=== PATIENT | male | born 1995 | race Caucasian/White ===

== ENCOUNTER 2017-08-11 09:49 | Day surgery (SDC) | payer OTHER ==
[~2017-08-11 09:49] MED LIST: Lactated Ringers 1,000 ML IV SCH; Lidocaine 1%/Sod Bicarbonate in NS 8.4% 1 ML Syringe IDERM PRN; Sodium Chloride 0.9% 10 ML Syringe FLUSH PRN; fentaNYL 100 MCG/2 ML SDV ONE
--- NOTE | 2017-08-11 10:24 | PCM.PREANE ---
Preanesthetic Assessment - Procedure Proposed Procedure: closed reduction with percutaneous pinning first metacarpal fx - Anesthesia/Transfusion/Family Hx Anesthesia History: Prior Anesthesia Without Reaction Family History of Anesthesia Reaction: No Transfusion History: No Prior Transfusion(s) - Review of Systems General: No Symptoms Pulmonary: No Symptoms Cardiovascular: No Symptoms Gastrointestinal: No Symptoms Neurological: No Symptoms Other: Reports: None - Physical Assessment NPO Status Date: 08/10/17 NPO Status Time: 23:25 Pulse: 67 O2 Sat by Pulse Oximetry: 100 Respiratory Rate: 16 Blood Pressure: 142/81 Temperature: 98.5 F Height: 5 ft 10 in Weight: 90 kg ASA Class: 1 Mental Status: Alert & Oriented x3 Airway Class: Mallampati = 1 Dentition: Reports: Normal Dentition Thyro-Mental Finger Breadths: 3 Mouth Opening Finger Breadths: 3 ROM/Head Extension: Full Lungs: Clear to Auscultation, Normal Respiratory Effort Cardiovascular: Regular Rate, Regular Rhythm - Allergies Allergies/Adverse Reactions: Allergies Allergy/AdvReac Type Severity Reaction Status Date / Time No Known Allergies Allergy Verified 08/08/17 10:17 - Blood Blood Available: No - Acknowledgements Anesthesia Type Planned: HOLLIS Pt an Appropriate Candidate for the Planned Anesthesia: Yes Alternatives and Risks of Anesthesia Discussed w Pt/Guardian: Yes Pt/Guardian Understands and Agrees with Anesthesia Plan: Yes PreAnesthesia Questionnaire - Past Health History Medical/Surgical History: Denies Medical/Surgical History Cardiovascular History: Reports: None Respiratory History: Reports: None Gastrointestinal History: Reports: None Musculoskeletal History: - Past Surgical History Musculoskeletal Surgical History: Reports: Other (See Below) Other Musculoskeletal Surgeries/Procedures:: right patella surgery - SUBSTANCE USE Smoking Status *Q: Never Smoker Tobacco Use Within Last Twelve Months: No Days Per Week of Alcohol Use: 1 (rare) Number of Drinks Per Day: 1 Total Drinks Per Week: 1 Recreational Drug Use History: No - HOME MEDS Home Medications: Home Meds Acetaminophen/HYDROcodone [Burnett 325-5 MG] 1 - 2 tab PO Q6H PRN #30 tablet 08/08 [Rx] - CURRENT (IN HOUSE) MEDS Current Meds: Current Medications Discontinued Medications Fentanyl (Sublimaze) Confirm Administered Dose 100 mcg .ROUTE .STK-MED ONE Stop: 08/11/17 07:53 Lactated Ringer's (Ringers, Lactated) 1,000 mls @ 125 mls/hr IV ASDIRECTED MARVIN Stop: 08/08/17 23:00 Lidocaine/Sodium Bicarbonate (Buffered Lidocaine 1% In Ns 8.4%) 0.25 ml IDERM ONETIME PRN PRN Reason: Prior to IV Start Stop: 08/08/17 18:00 Sodium Chloride (Saline Flush) 10 ml FLUSH ASDIRECTED PRN PRN Reason: Keep Vein Open Stop: 08/08/17 18:00
[2017-08-11] MEDS ORDERED: Sodium Bicarbonate 8.4% 50 MEQ/50 ML SDV ONE (10:46)
[2017-08-11] MEDS ORDERED: Lidocaine 0.5% 50 ML SDV ONE (10:46)
[2017-08-11] MEDS ORDERED: Bupivacaine 0.25% 30 ML SDV ONE (11:12)
[2017-08-11] MEDS ORDERED: Lidocaine 1%/Sod Bicarbonate in NS 8.4% 1 ML Syringe IDERM ONE (11:30)
[2017-08-11] MEDS ORDERED: Lactated Ringers 1,000 ML IV SCH (11:30)
[2017-08-11] MEDS ORDERED: Propofol 200 MG/20 ML SDV ONE (11:48)
[2017-08-11] MEDS ORDERED: fentaNYL 100 MCG/2 ML SDV ONE ×2 (11:50→12:04)
[2017-08-11] MEDS ORDERED: ceFAZolin 1 GM Vial ONE (12:32)
--- NOTE | 2017-08-11 12:41 | PCM48HPAN ---
Post Anesthesia Note - EVALUATION WITHIN 48HRS OF ANESTHETIC Vital Signs in Normal Range: Yes Patient Participated in Evaluation: Yes Respiratory Function Stable: Yes Airway Patent: Yes Cardiovascular Function Stable: Yes Hydration Status Stable: Yes Pain Control Satisfactory: Yes Nausea and Vomiting Control Satisfactory: Yes Mental Status Recovered: Yes Pulse Rate: 61 SaO2: 100 Resp Rate: 16 Temperature: 36.3 C Blood Pressure: 130/80
[2017-08-11] MEDS ORDERED: Acetaminophen/HYDROcodone 325-5 MG Tab PO SCH (12:51)
--- NOTE | 2017-08-11 13:01 | CR ---
Left thumb: Five views of the left thumb were obtained utilizing C-arm device. Comparison: No prior thumb study. Fracture is identified within the proximal aspect of the first metacarpal. Study shows placement of 2 fixation pins across the fracture line. Fluoroscopy time given as 30.7 seconds. Impression: 1. Operative study showing fixation of proximal first metacarpal fracture. Diagnostic code #2
--- NOTE | 2017-08-18 10:58 | PCM.OPNOTE ---
- General Post-Op/Procedure Note Date of Surgery/Procedure: 08/11/17 Operative Procedure(s): closed reduction percutaneous pinning of left first metacarpal Pre Op Diagnosis: displaced base of left first metacarpal fracture Post-Op Diagnosis: Same Anesthesia Technique: Regional Block (em) Primary Surgeon: Rajat Woodard Anesthesia Provider: Sarabjit Huerta Finish Repair Worker: Magda Tomlinson EBL in mLs: 5 Complications: None Condition: Good
--- NOTE | 2017-08-18 11:28 | OR ---
DATE OF OPERATION: 08/11/2017 SURGEON: Rajat Woodard MD OPERATION PERFORMED: Closed reduction and percutaneous pinning of left first metacarpal fracture. PREOPERATIVE DIAGNOSIS: Displaced base of left first metacarpal fracture. POSTOPERATIVE DIAGNOSIS: Displaced base of left first metacarpal fracture. ANESTHESIA: Regional Sunman block. ANESTHESIA PROVIDER: Sarabjit Huerta. COIN MACHINE SERVICER REPAIRER: Magda Tomlinson PA-C. ESTIMATED BLOOD LOSS: Less than 5 mL. COMPLICATIONS: None. CONDITION: Stable. DESCRIPTION OF PROCEDURE: The patient was identified in the preoperative holding area. Proper site was marked and identified by the surgeon. The patient was taken back to the operating theater where after adequate anesthesia, the patient's left upper extremity was sterilely prepped and draped in the usual sterile fashion. OR time-out was performed. The patient received antibiotics before the Sunman block. At this time, under C-arm fluoroscopy, a reduction maneuver was attempted and it was able to be reduced under closed reduction. At this time, two 0.042 K-wires were placed in retrograde fashion, starting at the foveal region of the first metacarpal and then were placed in cross-pin fashion in divergent technique across the base of the left first metacarpal fracture and it showed adequate reduction on AP, lateral, and oblique views and was stable throughout motion at this time. Once on C-arm fluoroscopy, final films were taken and it showed that the pins were in adequate position. The pins were then bent and cut. Sterile soft dressing was applied along with a radial thumb spica splint, and the patient was sent to PACU in stable condition. MMODAL /[id number]
== END 2017-08-11 13:34 | disposition home or self-care (01) ==
LOC: JD.SDS 09:49
PROVIDERS: ATTEND Orthopaedic Surgery
DX: S62.232A Other displaced fracture of base of first metacarpal bone, left hand, initial encounter for closed fracture (principal); Y93.61 Activity, american tackle football; Z98.890 Other specified postprocedural states
CPT/HCPCS: 26650; 76000; A9270; C1713; C1769; J0690; J3010; J3490; J7120; 01820; J2704

== ENCOUNTER 2025-02-01 20:24 | Emergency (ER) | payer SELFPAY ==
[2025-02-01 20:55] LABS: BASOPHILS ABSOLUTE AUTO 0.1 K/mm3 (0.0-0.2); BASOPHILS PERCENT AUTO 1.1 % (0.0-1.0); EOSINOPHILS ABSOLUTE AUTO 0.1 K/mm3 (0.0-0.4); EOSINOPHILS PERCENT AUTO 2.1 % (0.0-6.0); IMMATURE GRAN ABSOLUTE AUTO 0.01 K/mm3 (0.00-0.05); IMMATURE GRAN PERCENT AUTO 0.2 % (0.0-0.4); LYMPHOCYTES ABSOLUTE AUTO 2.0 K/mm3 (1.0-4.8); LYMPHOCYTES PERCENT AUTO 31.2 % (24.0-44.0); MEAN PLATELET VOLUME 8.9 fl (9.4-12.4); MONOCYTES ABSOLUTE AUTO 0.7 K/mm3 (0.0-0.8); MONOCYTES PERCENT AUTO 10.7 % (0.0-8.0); NEUTROPHILS ABSOLUTE AUTO 3.5 K/mm3 (1.8-7.7); NEUTROPHILS PERCENT AUTO 54.7 % (41.0-71.0); NRBC ABSOLUTE 0.00 (0.00-0.02); NRBC PERCENT 0.0 % (0.0-0.2); PLATELET COUNT,PLT 177 K/mm3 (150-400); RED BLOOD CELL COUNT 5.02 M/mm3 (4.52-5.90); WHITE BLOOD CELL COUNT,WBC 6.29 K/mm3 (3.9-11.3)
[2025-02-01 21:16] LABS: A/G RATIO 0.9 (1-2); ALANINE AMINOTRANSFERASE,ALT 79.0 U/L (16-63); ASPARTATE AMNIOTRANSFERASE,AST 195.0 U/L (15-37); BILIRUBIN TOTAL 2.6 mg/dL (0.2-1.0); BLOOD UREA NITROGEN,BUN 9.0 mg/dL (7-18); CARBON DIOXIDE,CO2 24.0 mEq/L (21-32); CHLORIDE,CL 100.0 mEq/L (98-107); CREATININE 1.0 mg/dL (0.7-1.3); EST CRCL DRUG DOSING (CG) 118.18 mL/min; ESTIMATED GFR 106.0 mL/min (>60); GLUCOSE RANDOM 92.0 mg/dL (70-99); POTASSIUM,K 4.0 mEq/L (3.5-5.1); PROTEIN TOTAL,TP 8.2 g/dl (6.4-8.2); SODIUM,NA 140.0 mEq/L (136-145)
== END 2025-02-01 21:35 | disposition home or self-care (01) ==
LOC: JD.ED 20:24
DX: G57.62 Lesion of plantar nerve, left lower limb (principal); G62.9 Polyneuropathy, unspecified; F10.20 Alcohol dependence, uncomplicated; F17.200 Nicotine dependence, unspecified, uncomplicated; Z86.16 Personal history of COVID-19
CPT/HCPCS: 36415; 80053; 83036; 85025; 99283; 99284

== ENCOUNTER 2025-02-18 07:10 | Emergency (ER) | payer SELFPAY | END 2025-02-18 08:26 | disposition home or self-care (01) | LOC: JD.ED 07:10 | DX: K08.89 Other specified disorders of teeth and supporting structures (principal); F22 Delusional disorders; Z79.899 Other long term (current) drug therapy; Z86.16 Personal history of COVID-19 | CPT/HCPCS: 99282 ==

== ENCOUNTER 2025-02-21 07:03 | Inpatient (IN) | payer MEDICAID ==
[2025-02-21] MEDS ORDERED: Sodium Chloride 0.9% 10 ML Syringe FLUSH PRN (07:43)
[2025-02-21] MEDS: LORazepam 2 MG/ML SDV IVPUSH ONE ×2 (07:56→10:02)
[2025-02-21 07:59] LABS: BASOPHILS ABSOLUTE AUTO 0.0 K/mm3 (0.0-0.2); BASOPHILS PERCENT AUTO 0.4 % (0.0-1.0); EOSINOPHILS ABSOLUTE AUTO 0.0 K/mm3 (0.0-0.4); EOSINOPHILS PERCENT AUTO 0.1 % (0.0-6.0); IMMATURE GRAN ABSOLUTE AUTO 0.01 K/mm3 (0.00-0.05); IMMATURE GRAN PERCENT AUTO 0.1 % (0.0-0.4); LYMPHOCYTES ABSOLUTE AUTO 1.2 K/mm3 (1.0-4.8); LYMPHOCYTES PERCENT AUTO 15.9 % (24.0-44.0); MEAN PLATELET VOLUME 10.3 fl (9.4-12.4); MONOCYTES ABSOLUTE AUTO 1.0 K/mm3 (0.0-0.8); MONOCYTES PERCENT AUTO 13.9 % (0.0-8.0); NEUTROPHILS ABSOLUTE AUTO 5.2 K/mm3 (1.8-7.7); NEUTROPHILS PERCENT AUTO 69.6 % (41.0-71.0); NRBC ABSOLUTE 0.07 (0.00-0.02); NRBC PERCENT 0.9 % (0.0-0.2); PLATELET COUNT,PLT 228 K/mm3 (150-400); RED BLOOD CELL COUNT 4.88 M/mm3 (4.52-5.90); WHITE BLOOD CELL COUNT,WBC 7.48 K/mm3 (3.9-11.3)
[2025-02-21] MEDS: Iopamidol 612 MG/ML 100 ML Bottle IVPUSH ONE (08:16)
[2025-02-21] MEDS: Sodium Chloride 0.9% 10 ML Syringe FLUSH PRN (08:16)
[2025-02-21 08:17] LABS: A/G RATIO 1.0 (1-2); ALANINE AMINOTRANSFERASE,ALT 54.0 U/L (16-63); ASPARTATE AMNIOTRANSFERASE,AST 158.0 U/L (15-37); BILIRUBIN TOTAL 4.3 mg/dL (0.2-1.0); BLOOD UREA NITROGEN,BUN 17.0 mg/dL (7-18); CARBON DIOXIDE,CO2 21.0 mEq/L (21-32); CREATINE KINASE,CK 93.0 U/L (39-308); EST CRCL DRUG DOSING (CG) 90.91 mL/min; ESTIMATED GFR 77.0 mL/min (>60); GLUCOSE RANDOM 126.0 mg/dL (70-99); POTASSIUM,K 2.7 mEq/L (3.5-5.1); SODIUM,NA 132.0 mEq/L (136-145); TSH 2.335 uIU/mL (0.358-3.74)
[2025-02-21 08:19] LABS: CHLORIDE,CL 86.0 mEq/L (98-107); CREATININE 1.3 mg/dL (0.7-1.3); ETHANOL BLOOD MEDICAL 0.0 gm% (0.00); PROTEIN TOTAL,TP 9.0 g/dl (6.4-8.2)
[2025-02-21] MEDS: Magnesium Sulf/Wat 4 GM/50 mL 4 GM in Premix Bag 1 BAG IV ONE (10:02)
[2025-02-21] MEDS: Potassium Chloride 20 MEQ Tab.ER PO ONE (13:36)
[2025-02-21 14:45] LABS: BUPRENORPHINE SCREEN,URINE NEGATIVE (CUTOFF=10); METHADONE SCREEN, URINE NEGATIVE (CUT0FF=200); METHAMPHETAMINES SCREEN, URINE NEGATIVE (CUTOFF=500); OXYCODONE SCREEN,URINE NEGATIVE (CUT0FF=100); THC SCREEN,URINE 20 NG/ML NEGATIVE (CUTOFF=50)
[2025-02-21 14:49] LABS: AMPHETAMINES SCREEN, URINE NEGATIVE (CUTOFF=500); APPEARANCE,URINE CLEAR (Clear); GLUCOSE,URINE NEGATIVE (Negative); OCCULT BLOOD,URINE NEGATIVE (Negative)
[2025-02-21] MEDS ORDERED: LORazepam 2 MG/ML SDV IV PRN ×2 (15:04)
[2025-02-21] MEDS: Thiamine 200 MG/2 ML MDV IVPUSH SCH (15:32)
[2025-02-21] MEDS: Folic Acid 50 MG/10 ML MDV IV SCH (15:33)
[2025-02-21] MEDS ORDERED: Ondansetron 4 MG/2 ML SDV IV PRN (15:53)
[2025-02-21] MEDS ORDERED: Ketorolac 30 MG/ML SDV IV PRN (15:53)
[2025-02-21 16:25] LABS: INR 1.12
[2025-02-21] MEDS: Lactated Ringers 1,000 ML IV SCH (16:39)
[2025-02-21] MEDS ORDERED: Ketorolac 30 MG/ML SDV IVPUSH PRN (17:47)
[2025-02-22 04:43] LABS: BASOPHILS ABSOLUTE AUTO 0.0 K/mm3 (0.0-0.2); BASOPHILS PERCENT AUTO 0.5 % (0.0-1.0); EOSINOPHILS ABSOLUTE AUTO 0.0 K/mm3 (0.0-0.4); EOSINOPHILS PERCENT AUTO 0.8 % (0.0-6.0); IMMATURE GRAN ABSOLUTE AUTO 0.01 K/mm3 (0.00-0.05); IMMATURE GRAN PERCENT AUTO 0.3 % (0.0-0.4); LYMPHOCYTES ABSOLUTE AUTO 1.5 K/mm3 (1.0-4.8); LYMPHOCYTES PERCENT AUTO 36.7 % (24.0-44.0); MEAN PLATELET VOLUME 9.5 fl (9.4-12.4); MONOCYTES ABSOLUTE AUTO 0.7 K/mm3 (0.0-0.8); MONOCYTES PERCENT AUTO 18.7 % (0.0-8.0); NEUTROPHILS ABSOLUTE AUTO 1.7 K/mm3 (1.8-7.7); NEUTROPHILS PERCENT AUTO 43.0 % (41.0-71.0); NRBC ABSOLUTE 0.04 (0.00-0.02); NRBC PERCENT 1.0 % (0.0-0.2); PLATELET COUNT,PLT 161 K/mm3 (150-400); RED BLOOD CELL COUNT 3.58 M/mm3 (4.52-5.90); WHITE BLOOD CELL COUNT,WBC 3.95 K/mm3 (3.9-11.3)
[2025-02-22 05:15] LABS: A/G RATIO 0.8 (1-2); ALANINE AMINOTRANSFERASE,ALT 27.0 U/L (16-63); ASPARTATE AMNIOTRANSFERASE,AST 67.0 U/L (15-37); BILIRUBIN TOTAL 2.0 mg/dL (0.2-1.0); BLOOD UREA NITROGEN,BUN 10.0 mg/dL (7-18); CHLORIDE,CL 98.0 mEq/L (98-107); CREATININE 0.8 mg/dL (0.7-1.3); EST CRCL DRUG DOSING (CG) 147.72 mL/min; ESTIMATED GFR 124.0 mL/min (>60); GLUCOSE RANDOM 89.0 mg/dL (70-99); PHOSPHORUS 2.0 mg/dL (2.6-4.7); POTASSIUM,K 3.1 mEq/L (3.5-5.1); PROTEIN TOTAL,TP 6.7 g/dl (6.4-8.2); SODIUM,NA 136.0 mEq/L (136-145)
[2025-02-22 05:18] LABS: CARBON DIOXIDE,CO2 29.0 mEq/L (21-32)
[2025-02-22] MEDS: Potassium Chloride 20 MEQ Tab.ER PO ONE (08:07)
[2025-02-23 04:52] LABS: BASOPHILS ABSOLUTE AUTO 0.0 K/mm3 (0.0-0.2); BASOPHILS PERCENT AUTO 0.7 % (0.0-1.0); EOSINOPHILS ABSOLUTE AUTO 0.0 K/mm3 (0.0-0.4); EOSINOPHILS PERCENT AUTO 0.4 % (0.0-6.0); IMMATURE GRAN ABSOLUTE AUTO 0.02 K/mm3 (0.00-0.05); IMMATURE GRAN PERCENT AUTO 0.4 % (0.0-0.4); LYMPHOCYTES ABSOLUTE AUTO 1.9 K/mm3 (1.0-4.8); LYMPHOCYTES PERCENT AUTO 42.1 % (24.0-44.0); MEAN PLATELET VOLUME 9.4 fl (9.4-12.4); MONOCYTES ABSOLUTE AUTO 0.8 K/mm3 (0.0-0.8); MONOCYTES PERCENT AUTO 18.2 % (0.0-8.0); NEUTROPHILS ABSOLUTE AUTO 1.7 K/mm3 (1.8-7.7); NEUTROPHILS PERCENT AUTO 38.2 % (41.0-71.0); NRBC ABSOLUTE 0.00 (0.00-0.02); NRBC PERCENT 0.0 % (0.0-0.2); PLATELET COUNT,PLT 181 K/mm3 (150-400); RED BLOOD CELL COUNT 3.49 M/mm3 (4.52-5.90); WHITE BLOOD CELL COUNT,WBC 4.51 K/mm3 (3.9-11.3)
[2025-02-23 05:30] LABS: A/G RATIO 0.9 (1-2); ALANINE AMINOTRANSFERASE,ALT 23.0 U/L (16-63); ASPARTATE AMNIOTRANSFERASE,AST 50.0 U/L (15-37); BILIRUBIN TOTAL 0.9 mg/dL (0.2-1.0); BLOOD UREA NITROGEN,BUN 6.0 mg/dL (7-18); CARBON DIOXIDE,CO2 26.0 mEq/L (21-32); CHLORIDE,CL 105.0 mEq/L (98-107); CREATININE 0.9 mg/dL (0.7-1.3); EST CRCL DRUG DOSING (CG) 131.31 mL/min; ESTIMATED GFR 120.0 mL/min (>60); GLUCOSE RANDOM 89.0 mg/dL (70-99); PHOSPHORUS 2.0 mg/dL (2.6-4.7); POTASSIUM,K 3.4 mEq/L (3.5-5.1); PROTEIN TOTAL,TP 6.2 g/dl (6.4-8.2); SODIUM,NA 140.0 mEq/L (136-145)
[2025-02-23] MEDS: Magnesium Sulf/Wat 4 GM/50 mL 4 GM in Premix Bag 1 BAG IV ONE (09:50)
[2025-02-23] MEDS: Potassium Chloride 20 MEQ Tab.ER PO ONE (09:52)
== END 2025-02-23 16:28 | disposition home or self-care (01) | DRG 896 ==
LOC: JD.ED 07:03 → JD.ICU 13:11
PROVIDERS: ADMIT Family Medicine; ATTEND Family Medicine
PROC: HZ2ZZZZ Detoxification Services for Substance Abuse Treatment (ICD-10-PCS; principal; 2025-02-21)
DX: F10.239 Alcohol dependence with withdrawal, unspecified (principal); K85.90 Acute pancreatitis without necrosis or infection, unspecified; G72.1 Alcoholic myopathy; G62.1 Alcoholic polyneuropathy; F17.200 Nicotine dependence, unspecified, uncomplicated; K70.10 Alcoholic hepatitis without ascites; Z79.899 Other long term (current) drug therapy; Z86.16 Personal history of COVID-19; Z98.890 Other specified postprocedural states
CPT/HCPCS: 36415; 74177; 74177-26; 80053; 80306; 80307; 81003; 82550; 83690; 83735; 84100; 84443; 85025; 85610; 93005; 96361; 96365; 96366; 96375; 96376; 97112-GP; 97116-GP; 97162-GP; 99285-25; A9270-GY; J1650; J1808; J2060; J3411; J3475; J3480; J7030; J7120; Q9967